=== PATIENT | male | born 1975 | race Caucasian/White ===

== ENCOUNTER 2021-05-07 10:19 | Emergency (ER) | payer BC, OTHER ==
[~2021-05-07] VITALS: Ht 188 cm; Wt 115.2 kg
[2021-05-07] MEDS ORDERED: ATEN50TA PO (10:41)
[2021-05-07] MEDS ORDERED: T3 PO (10:41)
[2021-05-07] MEDS ORDERED: ESCI10TA PO (10:41)
[2021-05-07] MEDS ORDERED: T4 PO (10:41)
--- NOTE | 2021-05-07 11:28 | NUR ---
Patient discharged to home in stable condition. Written and verbal after care instructions given. Patient verbalizes understanding of instructions. Stressed follow up or return to ER for worsening s/s.
== END 2021-05-07 11:30 | disposition home or self-care (01) ==
LOC: ER 10:19
DX: Z03.89 Encounter for observation for other suspected diseases and conditions ruled out (principal); F41.9 Anxiety disorder, unspecified; E07.9 Disorder of thyroid, unspecified; E29.1 Testicular hypofunction; T38.0X5S Adverse effect of glucocorticoids and synthetic analogues, sequela; Z20.822 Contact with and (suspected) exposure to COVID-19
CPT/HCPCS: 76536; 99284; U0003; A4663